=== PATIENT | female | born 1990 | race Caucasian/White ===

== ENCOUNTER 2019-03-01 10:20 | Emergency (ER) | payer OTHER, MEDICAID, SELFPAY ==
[2019-03-01 10:30] VITALS: BP 119/73; PULSE 82; RESP 14; TEMP 37.1; O2SAT 97; BMI 42.8
--- NOTE | 2019-03-01 12:05 | ED.URI ---
HPI - URI/Sore Throat <DURAN Irizarry - Last Filed: 03/01/19 22:10> General Chief Complaint: Upper Respiratory Symptoms Stated Complaint: possible strep throat, swollen, feverish Time Seen by Provider: 03/01/19 12:05 Source: patient Mode of arrival: ambulatory Limitations: no limitations History of Present Illness HPI Narrative: Healthy 28-year-old female that is a former smoker here for complaint of having sore throat chills cough and nasal congestion over the past day. She has not checked for temperature although she has felt like she has been fevers because she has had chills. she reports that she has a dry cough. She is tolerating p.o. fluids well. No nausea vomiting. 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 She denies any other concerns or complaints at this time frame. No acute distress. MD Complaint: cough, sore throat, rhinorrhea and nasal congestion Related Data Home Medications Medication Instructions Recorded Confirmed alprazolam 0.5 mg PO DAILY PRN 03/01/19 03/01/19 Allergies Allergy/AdvReac Type Severity Reaction Status Date / Time No Known Drug Allergies Allergy Verified 03/01/19 10:40 Review of Systems <DURAN Irizarry - Last Filed: 03/01/19 22:10> Constitutional Reports chills Eyes Denies change in vision, Denies eye discharge, Denies irritation and Denies loss of vision ENT Ears, Nose, Mouth, and Throat: Reports nasal congestion, Reports sore throat and Denies throat swelling Cardiovascular Denies chest pain, Denies irregular heart rhythm, Denies lightheadedness, Denies palpitations and Denies orthopnea Respiratory Reports cough and Denies wheezing Gastrointestinal Gastrointestinal: Denies abdominal pain, Denies change in bowel habits, Denies diarrhea, Denies nausea and Denies vomiting Genitourinary Denies hematuria, Denies flank pain, Denies urinary incontinence and Denies urinary urgency Musculoskeletal Denies back pain, Denies muscle weakness, Denies numbness and Denies tingling Integumentary/Breasts Denies pruritus, Denies erythema, Denies rash and Denies wounds Neurologic Denies loss of vision, Denies numbness and Denies tingling Endocrine Denies palpitations Hematologic/Lymphatic Denies easy bruising Allergic/Immunologic Denies urticaria, Denies throat swelling and Denies wheezing PFSH <DURAN Irizarry - Last Filed: 03/01/19 22:10> Medical History Anxiety (Acute) Social History Smoking Status: Former smoker Social History Smoking Status: Former smoker Exam <DURAN Irizarry - Last Filed: 03/01/19 22:10> Initial Vital Signs Initial Vital Signs: Vital Signs Temperature 98.7 F 03/01/19 10:30 Pulse Rate 82 03/01/19 10:30 Respiratory Rate 14 03/01/19 10:30 Blood Pressure 119/73 03/01/19 10:30 Pulse Oximetry 97 03/01/19 10:30 Const General: cooperative and well developed Nutritional Appearance: well nourished Orientation: alert, awake, oriented x3 and not confused HENMT Mouth: oral mucosae normal and moist mucous membranes Throat: posterior oropharynx abnormal erythema; no exudates Eyes Conjunctivae: conjunctivae normal Sclera: sclerae normal Pupils: PERRL EOM: EOM intact bilaterally Resp Effort & Inspection: normal respiratory effort, able to speak in complete sentences, no respiratory distress and no use of accessory muscles Auscultation: clear to auscultation bilaterally, no rales, no rhonchi and no wheezes Cardio Rate: regular rate Rhythm: regular rhythm Heart Sounds: no click, no gallops, no murmurs and no rubs Skin General: no rashes or lesions noted, No jaundice and No petechiae Neuro General: alert, oriented x3, gait normal and no focal motor deficits Speech: speech normal <Dina Griffith DO - Last Filed: 03/02/19 08:14> Initial Vital Signs Initial Vital Signs: Vital Signs Temperature 98.7 F 03/01/19 10:30 Pulse Rate 82 03/01/19 10:30 Respiratory Rate 14 03/01/19 10:30 Blood Pressure 119/73 03/01/19 10:30 Pulse Oximetry 97 03/01/19 10:30 Course <DURAN Irizarry - Last Filed: 03/01/19 22:10> Orders Ordered: ED Orders 03/01/19 12:08 Influenza A and B by PCR Rapid Stat Vital Signs - 8 hr 03/01/19 10:30 Temperature 98.7 F Pulse Rate 82 Respiratory Rate 14 Blood Pressure 119/73 Pulse Oximetry 97 <Dina Griffith DO - Last Filed: 03/02/19 08:14> Orders Ordered: ED Orders 03/01/19 12:08 Influenza A and B by PCR Rapid Stat Vital Signs - 8 hr 03/01/19 10:30 Temperature 98.7 F Pulse Rate 82 Respiratory Rate 14 Blood Pressure 119/73 Pulse Oximetry 97 MDM - URI/Sore Throat <DURAN Irizarry - Last Filed: 03/01/19 22:10> Lab Data Lab Results 03/01/19 Range/Units 12:08 Influenza A & B (PCR) Negative (Negative) Point of Care Testing Rapid Strep A Negative MDM Narrative Medical decision making narrative: Strep test was obtained was negative. Flu swab was also obtained and was also negative. Signs and symptoms presents as viral upper respiratory infection. Plenty of fluids and rest. Saline irrigation to nasal passages and hot showers to help with nasal congestion. Throat lozenges and saltwater gargles to help with sore throat. Follow up with primary care provider. Return emergency room for any worsening symptoms [id number] Tylenol or Motrin as needed for fever and discomfort. <Dina Griffith DO - Last Filed: 03/02/19 08:14> Lab Data Lab Results 03/01/19 Range/Units 12:08 Influenza A & B (PCR) Negative (Negative) Point of Care Testing Rapid Strep A Negative Discharge Plan Departure Patient Disposition: Home Clinical Impression: Upper respiratory infection Qualifiers: URI type: unspecified viral URI Qualified Code(s): J06.9 - Acute upper respiratory infection, unspecified Discharge Date/Time: 03/01/19 12:46 Interventions: ED Discharge Assessment Last Done: 03/01/19 12:45 Instructions: DI for Viral Upper Respiratory Infection -- Adult Activity Restrictions/Additional Instructions: Strep test was obtained was negative. Flu swab was also obtained and was also negative. Signs and symptoms presents as viral upper respiratory infection. Plenty of fluids and rest. Saline irrigation to nasal passages and hot showers to help with nasal congestion. Throat lozenges and saltwater gargles to help with sore throat. Follow up with primary care provider. Return emergency room for any worsening symptoms [id number] Tylenol or Motrin as needed for fever and discomfort. Prescriptions: No Action alprazolam 0.5 mg tablet 0.5 mg PO DAILY PRN (Reason: anxiety) RF: 0 Referrals: Tami Garzon ARNP [Primary Care Provider] - Stand Alone Forms: Work Release Note, Work/School Release <Dina Griffith DO - Last Filed: 03/02/19 08:14> Cosign ED Attending Cosignature Attestation: I was immediately available in the department for consultation. This documentation has been reviewed and I agree with assessment and plan. Supervised by Dina Grififth DO
[2019-03-01 12:24] LABS: Influenza A and B by PCR Rapid Negative (Negative)
[2019-03-01 12:45] VITALS: BP 115/72; PULSE 65; RESP 18; TEMP 36.2; O2SAT 98
== END 2019-03-01 12:46 | disposition home or self-care (01) ==
PROVIDERS: Emergency Medicine; Emergency Provider Nurse Practitioner Family; PCP Nurse Practitioner Family
DX: J06.9 Acute upper respiratory infection, unspecified (principal)
CPT/HCPCS: 87400; 87880; 99282